=== PATIENT | female | born 1975 | race Caucasian/White ===

== ENCOUNTER → 2017-09-24 15:30 | Outpatient (CLI) | payer OTHER, SELFPAY ==
--- NOTE | 2017-09-24 15:33 | HPBI_ITS ---
MAMMOGRAPHY - BILATERAL SCREENING REASON FOR EXAM: Female, 42 years old. Routine annual screening examination. PERTINENT HISTORY: Non-contributory. TECHNIQUE: Digital bilateral breast stacia (3D mammographic acquisition) in the CC and MLO projections. 2-D mediolateral oblique (MLO) and craniocaudad (CC) views of both breasts were obtained. CAD: Full Field Digital Mammography with Computer Added Detection was performed. COMPARISON: Comparison is made with prior study dated September 01, 2016 and August 16, 2015. FINDINGS: Breast Composition: The breasts are heterogeneously dense, which may obscure small masses. There are no dominant masses or suspicious calcifications. No other significant abnormalities are identified. There has been no significant change since the prior study. HPBI/SCREENING MAMM (CAD), BILAT IMPRESSION: Stable bilateral screening mammogram. Yearly follow-up mammogram recommended. (A) ASSESSMENT CATEGORY: BIRADS Category 1: Negative. A letter regarding these results will be sent to the patient by the facility within 30 days. Approximately 10% of breast cancers are not detected by mammography. A normal mammogram should not delay biopsy of a clinically suspicious abnormality. [id number] Electronically Signed: Ian Wiggins MD at 8:22 EDT Tel [phone], Service support ,
== END ==
PROVIDERS: Family Provider Family Medicine; PCP Family Medicine; Visit Provider Obstetrics & Gynecology Gynecology
DX: Z12.31 Encounter for screening mammogram for malignant neoplasm of breast (principal)
CPT/HCPCS: 77063; 77067

== ENCOUNTER → 2018-11-04 | Outpatient (CLI) | payer OTHER, SELFPAY ==
[2018-01-23 09:46] VITALS: BMI 20.4
--- NOTE | 2018-11-04 08:50 | BI_ITS ---
MAMMOGRAPHY - BILATERAL DIAGNOSTIC REASON FOR EXAM: Female, 43 years old. Palpable lump. PERTINENT HISTORY: Left lump found by physician last week 8:00 position marked with marker. Not felt by patient. TECHNIQUE: Digital examination. Mediolateral oblique (MLO) and craniocaudad (CC) views of unilateral breast was obtained. CAD: COMPARISON: September 24, 2017 and November 04, 2018. FINDINGS: Breast Composition: There are no dominant masses or suspicious calcifications. No other significant abnormalities are identified. BI/DIAG MAMM W/CAD, BILAT IMPRESSION: Stable bilateral diagnostic mammogram. ASSESSMENT CATEGORY 0-assessment incomplete-additional imaging recommended.: Please refer to Subsequent dictation of the left breast lower inner quadrant sonographic evaluation. FOLLOW UP RECOMMENDATION: Ultrasound Recommended. (I) Approximately 10% of breast cancers are not detected by mammography. A normal mammogram should not delay biopsy of a clinically suspicious abnormality. Electronically Signed: Handy Newell MD at 14:31 EDT , Service support ,
--- NOTE | 2018-11-04 09:05 | US_ITS ---
STUDY: ULTRASOUND BREAST - LEFT REASON FOR EXAM: Female, 43 years old. Abnormal screening mammography. Left lump found by position last week at the lower inner quadrant approximately 8:00 position. TECHNIQUE: Axial and longitudinal images of the LEFT breast were performed with a high resolution ultrasound transducer. COMPARISON: None. FINDINGS: The area of clinical concern was sonographically evaluated utilizing various imaging planes augmented by color Doppler. There is no definite discrete cyst, nodule or mass. There is no fluid collection. There is a very vague ill-defined hypoechoic area within an area of breast tissue in the region of clinical concern. There is no posterior enhancement. There is no posterior shadowing. US/Breast Limited Unilateral IMPRESSION: No definite discrete cyst, nodule or mass. No fluid collection. Very, very, vague ill-defined hypoechoic area within the region of clinical concern. This finding may represent slightly atypical appearing intramammary lymph node. However, ill-defined mass cannot be completely excluded. Recommend further evaluation with breast MRI. ASSESSMENT CATEGORY: BIRADS Category 0: Incomplete. Need additional imaging evaluation. A letter regarding these results will be sent to the patient by the facility within 30 days. Recommendation: Highly recommend further evaluation with breast MRI. Electronically Signed: Handy Newell MD at 7:41 EDT , Service support ,
[2018-11-04 09:53] LABS: Cholesterol 182 mg/dL (200); Glucose 88 mg/dL (74-106); High Density Lipoprotein 78 mg/dL; Thyroid Stim Hormone (TSH) 2.92 uIU/mL (0.358-3.74); Triglycerides 34 mg/dL; Very Low Density Lipoprotein 7 mg/dL (5-40)
== END | disposition home or self-care (01) ==
LOC: LAB 08:14
PROVIDERS: Family Provider Family Medicine; PCP Family Medicine; Referring Provider Obstetrics & Gynecology Gynecology; Visit Provider Obstetrics & Gynecology Gynecology
DX: N63.0 Unspecified lump in unspecified breast (principal); Z13.1 Encounter for screening for diabetes mellitus; Z13.220 Encounter for screening for lipoid disorders
CPT/HCPCS: 36415; 76642; 77062; 77066; 80061; 82947; 84443; G0279

== ENCOUNTER → 2018-11-14 | Outpatient (CLI) | payer OTHER, SELFPAY ==
--- NOTE | 2018-11-14 12:46 | MRI_ITS ---
STUDY: BILATERAL BREAST MR WITHOUT AND WITH CONTRAST REASON FOR EXAM: Female, 43 years old. Palpable abnormality in the left breast on clinical breast exam. Equivocal ultrasound findings. Evaluate. TECHNIQUE: Multi-sequence multi-echo imaging of both breasts was performed with a dedicated breast coil. T1-weighted and T2-weighted images were performed before the administration of contrast. T1-weighted images were also performed after the administration of 10 IV Dotarem without complications. COMPARISON: Breast ultrasound dated 11/04/2018 and mammogram studies of 11/04/2017, 09/24/2017 and 09/01/2016 FINDINGS: RIGHT BREAST: The breast tissue is heterogeneously dense with minimal background enhancement. There are no abnormal enhancing masses or areas of non-mass enhancement in the right breast. LEFT BREAST: The breast tissue is heterogeneously dense with minimal background enhancement. There are no abnormal enhancing masses or areas of non-mass enhancement in the left breast. The palpable abnormality does not appear to be worrisome for malignancy based upon MRI criteria. The ill-defined region in the left breast seen on the ultrasound examination does not appear to be worrisome for malignancy based on MRI criteria. There are no enlarged or abnormal lymph nodes. There is no abnormality in the visualized regions of the chest or liver. MRI/Breast Bilateral W/O and W IMPRESSION: Unremarkable breast MR examination with contrast. The patient should continue to do monthly self breast exams. If the palpable area does increase in size, biopsy should be considered. Otherwise, the patient should return in 6 months for follow-up ultrasound of the palpable area to document stability. CATEGORY: BIRADS Category 3: Probably Benign - Short-Interval Follow-up Suggested. A letter regarding these results will be sent to the patient by the facility within 30 days. Electronically Signed: Silva Hector DO at 5:33 EDT Tel , Service support ,
== END | disposition home or self-care (01) ==
LOC: MRI 12:42
PROVIDERS: Family Provider Family Medicine; PCP Family Medicine; Referring Provider Obstetrics & Gynecology Gynecology; Visit Provider Obstetrics & Gynecology Gynecology
DX: R92.8 Other abnormal and inconclusive findings on diagnostic imaging of breast (principal)
CPT/HCPCS: 77049; A9575; A4216; C8908

== ENCOUNTER → 2019-05-27 | Outpatient (CLI) | payer OTHER, SELFPAY ==
--- NOTE | 2019-05-27 09:12 | US_ITS ---
STUDY: ULTRASOUND BREAST - LEFT REASON FOR EXAM: Female, 44 years old. Six-month follow-up of the palpable breast lump. TECHNIQUE: Axial and longitudinal images of the LEFT breast were performed with a high resolution ultrasound transducer. # OF IMAGES: 31 COMPARISON: Comparison is made with prior examination dated November 04, 2018. FINDINGS: LEFT Breast: Imaging of the 8:00 and 9:00 radians of the left breast was obtained. No significant abnormality is seen. US/Breast Limited Unilateral IMPRESSION: No significant abnormality is seen. ASSESSMENT CATEGORY: BIRADS Category 2: Benign. A letter regarding these results will be sent to the patient by the facility within 30 days. Electronically Signed: Ian Wiggins, at 10:26 EST , Service support ,
== END | disposition home or self-care (01) ==
LOC: OPUS 09:11
PROVIDERS: Family Provider Family Medicine; PCP Family Medicine; Referring Provider Obstetrics & Gynecology Gynecology; Visit Provider Obstetrics & Gynecology Gynecology
DX: N63.20 Unspecified lump in the left breast, unspecified quadrant (principal)
CPT/HCPCS: 76642

== ENCOUNTER 2020-03-31 12:54 | Outpatient (RCR) | payer OTHER, SELFPAY ==
[2019-10-03 16:09] VITALS: BMI 20.4
== END 2020-04-14 23:59 ==
LOC: EMPH 12:54
PROVIDERS: PCP Family Medicine; Visit Provider Family Medicine Geriatric Medicine
DX: Z11.59 Encounter for screening for other viral diseases (principal)
CPT/HCPCS: 87635; U0003

== ENCOUNTER → 2020-04-02 | Outpatient (CLI) | payer OTHER, SELFPAY ==
[2019-10-03 16:09] VITALS: BMI 20.4
--- NOTE | 2020-04-02 15:29 | CT_ITS ---
STUDY: CT MAXILLOFACIAL SINUSES REASON FOR EXAM: Female, 44 years old. Sinusitis, right sided pressure, unable to breathe thru, antibiotics x 3. SAIC navigation protocol. RADIATION DOSAGE (If Supplied By Facility): CTDIvol = ( 33.06 ) mGy, DLP = ( 842.11 ) mGycm TECHNIQUE: The patient was scanned in a multi detector CT scanner. High resolution axial imaging was performed without the administration of intravenous contrast material. Sagittal and coronal images were reconstructed. Individualized dose optimization techniques were used for this CT. COMPARISON: None. FINDINGS: FRONTAL SINUSES: Mild mucosal thickening of the right frontal sinus. ETHMOIDAL SINUSES: Opacification of the right ethmoid sinus. MAXILLARY SINUSES: Opacification of the right maxillary sinus. SPHENOIDAL SINUSES: Normal aeration, without mucosal inflammatory disease. The right maxillary infundibulum is compromised due to mucosal hypertrophy. Normal bilateral middle turbinates. There is hypertrophy of the bilateral inferior nasal turbinates. Normal midline nasal septum. Opacification of the right nasal cavity. The visualized osseous structures are normal. The visualized bilateral orbital contents are normal. CT/Sinus/Facial Bone IMPRESSION: Right maxillary, ethmoid and frontal sinusitis. Opacification of the right nasal cavity. Polyposis should be ruled out. Electronically Signed: Ian Wiggins, at 15:46 EDT , Service support ,
== END | disposition home or self-care (01) ==
LOC: CT 15:26
PROVIDERS: PCP Family Medicine; Referring Provider Family Medicine; Visit Provider Family Medicine
DX: J32.1 Chronic frontal sinusitis (principal)
CPT/HCPCS: 70486

== ENCOUNTER 2020-05-13 20:10 | Outpatient (RCR) | payer OTHER, SELFPAY ==
[2019-10-03 16:09] VITALS: BMI 20.4
== END 2020-05-15 23:59 ==
LOC: EMPH 20:10
PROVIDERS: PCP Family Medicine; Visit Provider Family Medicine Geriatric Medicine
DX: Z03.818 Encounter for observation for suspected exposure to other biological agents ruled out (principal)
CPT/HCPCS: 87426

== ENCOUNTER 2020-07-08 08:28 | Outpatient (RCR) | payer OTHER, SELFPAY ==
[2019-10-03 16:09] VITALS: BMI 20.4
== END 2020-07-15 23:59 ==
LOC: EMPH 08:28
PROVIDERS: PCP Family Medicine; Visit Provider Family Medicine Geriatric Medicine
DX: Z03.818 Encounter for observation for suspected exposure to other biological agents ruled out (principal)
CPT/HCPCS: 87426

== ENCOUNTER 2020-07-29 13:33 | Outpatient (RCR) | payer OTHER, SELFPAY ==
[2019-10-03 16:09] VITALS: BMI 20.4
== END 2020-08-15 23:59 ==
LOC: EMPH 13:33
PROVIDERS: PCP Family Medicine; Visit Provider Family Medicine Geriatric Medicine
DX: Z03.818 Encounter for observation for suspected exposure to other biological agents ruled out (principal)
CPT/HCPCS: 87426

== ENCOUNTER 2020-09-23 15:00 | Outpatient (RCR) | payer OTHER, SELFPAY ==
[2019-10-03 16:09] VITALS: BMI 20.4
== END 2020-10-13 23:59 ==
LOC: EMPH 15:00
PROVIDERS: Visit Provider Family Medicine Geriatric Medicine
DX: Z03.818 Encounter for observation for suspected exposure to other biological agents ruled out (principal)
CPT/HCPCS: 87426

== ENCOUNTER 2020-10-22 13:15 | Outpatient (RCR) | payer OTHER, SELFPAY ==
[2019-10-03 16:09] VITALS: BMI 20.4
== END 2020-11-12 23:59 ==
LOC: EMPH 13:15
PROVIDERS: Referring Provider Family Medicine Geriatric Medicine; Visit Provider Family Medicine Geriatric Medicine
DX: Z03.818 Encounter for observation for suspected exposure to other biological agents ruled out (principal)
CPT/HCPCS: 87426

== ENCOUNTER 2021-01-05 09:15 | Outpatient (RCR) | payer OTHER, SELFPAY ==
[2019-10-03 16:09] VITALS: BMI 20.4
== END 2021-01-12 23:59 ==
LOC: EMPH 09:15
PROVIDERS: Referring Provider Family Medicine Geriatric Medicine; Visit Provider Family Medicine Geriatric Medicine
DX: Z03.818 Encounter for observation for suspected exposure to other biological agents ruled out (principal)
CPT/HCPCS: 87426

== ENCOUNTER 2021-03-15 12:15 | Outpatient (RCR) | payer OTHER, SELFPAY ==
[2019-10-03 16:09] VITALS: BMI 20.4
== END 2021-03-15 23:59 ==
LOC: EMPH 12:15
PROVIDERS: Referring Provider Family Medicine Geriatric Medicine; Visit Provider Family Medicine Geriatric Medicine
DX: Z03.818 Encounter for observation for suspected exposure to other biological agents ruled out (principal)
CPT/HCPCS: 87426

== ENCOUNTER 2021-03-25 11:58 | Outpatient (RCR) | payer OTHER, SELFPAY ==
[2021-03-16 00:14] VITALS: BMI 20.4
== END 2021-04-14 23:59 ==
LOC: EMPH 11:58
PROVIDERS: Referring Provider Family Medicine Geriatric Medicine; Visit Provider Family Medicine Geriatric Medicine
DX: Z03.818 Encounter for observation for suspected exposure to other biological agents ruled out (principal)
CPT/HCPCS: 87426

== ENCOUNTER → 2021-05-18 16:09 | Outpatient (CLI) | payer OTHER, SELFPAY ==
--- NOTE | 2021-05-18 16:12 | BI_ITS ---
MAMMOGRAPHY - BILATERAL SCREENING REASON FOR EXAM: Female, 46 years old. Routine annual screening examination. PERTINENT HISTORY: Non-contributory. TECHNIQUE: Digital bilateral breast deidra (3D mammographic acquisition) in the CC and MLO projections. 2-D mediolateral oblique (MLO) and craniocaudad (CC) views of both breasts were obtained. CAD: Full Field Digital Mammography with Computer Added Detection was performed. COMPARISON: Comparison is made with prior mammogram dated 11/04/2018 and prior MRI of the breasts dated 11/14/2018. FINDINGS: Breast Composition: The breasts are heterogeneously dense, which may obscure small masses. There are no dominant masses or suspicious calcifications. No other significant abnormalities are identified. There has been no significant change since the prior study. BI/SCRN MAMM (CAD)W/DEIDRA BILAT IMPRESSION: Stable bilateral screening mammogram. Yearly follow-up mammogram recommended. (A) ASSESSMENT CATEGORY: BIRADS Category 1: Negative. A letter regarding these results will be sent to the patient by the facility within 30 days. Approximately 10% of breast cancers are not detected by mammography. A normal mammogram should not delay biopsy of a clinically suspicious abnormality. [id number] Electronically Signed: Ian Wiggins MD at 8:47 EDT , Service support ,
== END ==
PROVIDERS: Referring Provider Obstetrics & Gynecology Gynecology; Visit Provider Obstetrics & Gynecology Gynecology
DX: Z12.31 Encounter for screening mammogram for malignant neoplasm of breast (principal)
CPT/HCPCS: 77063; 77067

== ENCOUNTER 2021-07-14 15:41 | Outpatient (RCR) | payer OTHER, SELFPAY ==
[2021-04-15 00:10] VITALS: BMI 20.4
== END 2021-07-15 23:59 ==
LOC: EMPH 15:41
PROVIDERS: Referring Provider Family Medicine Geriatric Medicine; Visit Provider Family Medicine Geriatric Medicine
DX: Z03.818 Encounter for observation for suspected exposure to other biological agents ruled out (principal)
CPT/HCPCS: 87635; U0003; U0005

== ENCOUNTER → 2022-07-31 | Outpatient (CLI) | payer OTHER, SELFPAY ==
[2022-07-31 08:12] LABS: Cholesterol 192 mg/dL (200); Glucose 98 mg/dL (74-106); High Density Lipoprotein 81 mg/dL; Triglycerides 52 mg/dL; Very Low Density Lipoprotein 10 mg/dL (5-40)
[2022-07-31 09:10] LABS: Hepatitis C Antibody Non-Reactive (Nonreactive)
== END | disposition home or self-care (01) ==
LOC: LAB 07:31
PROVIDERS: PCP Family Medicine; Referring Provider Obstetrics & Gynecology Gynecology; Visit Provider Obstetrics & Gynecology Gynecology
DX: Z01.419 Encounter for gynecological examination (general) (routine) without abnormal findings (principal)
CPT/HCPCS: 36415; 80061; 82947; 84443; 86803

== ENCOUNTER → 2022-10-26 | Outpatient (CLI) | payer OTHER, SELFPAY ==
[2022-10-26 17:20] LABS: Thyroid Stim Hormone (TSH) 2.16 uIU/mL (0.358-3.74)
[2022-10-26 18:45] LABS: Hepatitis C Antibody Non-Reactive (Nonreactive)
== END | disposition home or self-care (01) ==
LOC: LAB 16:25
PROVIDERS: PCP Family Medicine; Visit Provider Obstetrics & Gynecology Gynecology
DX: Z01.419 Encounter for gynecological examination (general) (routine) without abnormal findings (principal); E03.8 Other specified hypothyroidism
CPT/HCPCS: 36415; 84443; 86803

== ENCOUNTER → 2023-04-13 | Outpatient (CLI) | payer OTHER, SELFPAY ==
--- NOTE | 2023-04-13 07:18 | BI_ITS ---
MAMMOGRAPHY - BILATERAL SCREENING REASON FOR EXAM: Female, 47 years old. Routine annual screening examination. PERTINENT HISTORY: Mother with breast cancer. TECHNIQUE: Digital bilateral breast deidra (3D mammographic acquisition) in the CC and MLO projections. 2-D mediolateral oblique (MLO) and craniocaudad (CC) views of both breasts were obtained. CAD: Full Field Digital Mammography with Computer Added Detection was performed. COMPARISON: Comparison is made with prior study May 18, 2021 and November 04, 2018. FINDINGS: Breast Composition: The breasts are heterogeneously dense, which may obscure small masses. There are no dominant masses or suspicious calcifications. No other significant abnormalities are identified. There has been no significant change since the prior study. BI/SCRN MAMM (CAD)W/DEIDRA BILAT IMPRESSION: Stable bilateral screening mammogram. Yearly follow-up mammogram recommended. (A) ASSESSMENT CATEGORY: BIRADS Category 1: Negative. A letter regarding these results will be sent to the patient by the facility within 30 days. Approximately 10% of breast cancers are not detected by mammography. A normal mammogram should not delay biopsy of a clinically suspicious abnormality. [id number] Electronically Signed: Ian Wiggins MD at 9:00 EDT ,
== END | disposition home or self-care (01) ==
LOC: OPBI 07:15
PROVIDERS: PCP Family Medicine; Referring Provider Obstetrics & Gynecology Gynecology; Visit Provider Obstetrics & Gynecology Gynecology
DX: Z12.31 Encounter for screening mammogram for malignant neoplasm of breast (principal); Z80.3 Family history of malignant neoplasm of breast
CPT/HCPCS: 77063; 77067

== ENCOUNTER → 2023-08-29 | Outpatient (CLI) | payer OTHER, SELFPAY ==
--- OUTSIDE RECORDS SUMMARY | 2023-08-29 07:36 | XMS RPT_ITS | CCD ---
Author Name Unknown Address [address] [place] [address] Organization [facility] Care Team Providers Care Skate Boarder Name Role Phone DR CHAS REIS DO Primary Care Physician JUAN MAKI, FARRAH Attending Unavailable SMILEY ROBERTSON, DR. DOHERTY Primary Care Francesco MARTINEZ MD, FARRAH Attending Edilberto REIS DO, DR. DOHERTY Primary Care Francesco MARTINEZ MD, FARRAH Attending Edilberto REIS DO, DR. DOHERTY Primary Care Francesco heart Allergies Allergy Classification Reported Allergen(s) Allergy Type Date of Onset Reaction(s) Facility (2 sources) Sulfonamides (Antibiotic); Translations: [sulfa drugs] Drug allergy [facility] Medications Current Medications Medication Drug Class(es) Dates Sig (Normalized) Sig (Original) ferrous sulfate 325 mg oral tablet (2 sources) Start: 07-26-2022 IRON (ferrous sulfate 325 mg) 65 mg oral tablet Dose : 325 mg = 1 tab(s), Oral, qDay, Take with food., # 60 tab(s), 3 Refill(s) Start Date: 07/26/22 Status: Ordered Multivitamin preparation (2 sources) Start: 04-04-2021 take 1 tablet by mouth once daily Multivitamin Dose = 1 tab(s), Oral, Daily, 0 Refill(s) Start Date: 04/04/21 Status: Ordered nitrofurantoin, macrocrystals 25 mg / nitrofurantoin, monohydrate 75 mg oral capsule (2 sources) Nitrofuran Antibacterial Start: 07-28-2022 End: 08-04-2022 Macrobid 100 mg oral capsule Dose : 100 mg = 1 cap(s), Oral, BID, Take with food, X 7 day(s), # 14 cap(s), 0 Refill(s), 08/04/22 10:54:00 EST, Pharmacy: [facility], 167, cm, 07/26/22 10:11:00 EST, Height, 64.1 Start Date: 07/28/22 Stop Date: 08/04/22 Status: Ordered Vitamin D3 (2 sources) Start: 07-26-2022 Vitamin D3 qDay, 0 Refill(s) Start Date: 07/26/22 Status: Ordered Problems Problem Classification Problem Date Documented Da te Episodic/Chronic Genitourinary symptoms and ill-defined conditions (2 sources) Dysuria; Translations: [Dysuria] Onset: 07-26-2022 Episodic Other screening for suspected conditions (not mental disorders or infectious disease) (4 sources) Encounter for other screening for malignant neoplasm of breast; Translations: [Encounter for screening for malignant neoplasm of cervix] Onset: 07-26-2022 Episodic Results Test Name Value Interpretation Reference Range Facil ity Encounters Encounter Date Encounter Type Care Provider Facility Start: 07-26-2022 End: 07-31-2022 ambulatory FARRAH MARTINEZ MD Facility:B Start: 07-26-2022 End: 07-31-2022 Encounter for gynecological examination (general) (routine) without abnormal findings FARRAH MARTINEZ MD Facility:[facility] Start: 07-26-2022 End: 07-30-2022 Outreach Lab FARRAH MARTINEZ MD [facility] Procedures Date Procedure Procedure Detail Performing Clinician section FARRAH Muhammad MD Payers Date Payer Category Payer Unknown [id number] 1975 Unknown [id number] 1975 Unknown [id number] 1975 Unknown [id number] Social History Date Type Detail Facility Start: 04-04-2021 Tobacco smoking status Never s moked tobacco (finding) [facility] Sex Assigned At Female [facility] Clinical Note 07-28-2022 Note Date & Type Note Facility 07-28-2022 Note . MICRO - Microbiology PROCEDURE: Urine Culture [*1] SOURCE: Urine BODY SITE: COLLECTED DATE/TIME: 07/26/2022 10:41 EST RECEIVED DATE/TIME: 07/26/2022 21:02 EST START DATE/TIME: 07/26/2022 21:02 EST FREE TEXT SOURCE: FINAL REPORTS Final Report [] Verified Date/Time/Personnel: 07/28/2022 08:23 EST >100,000 cfu/ml Escherichia coli PRELIMINARY REPORTS Preliminary Report [] Verified Date/Time/Personnel: 07/27/2022 13:39 EST >100,000 cfu/ml Escherichia coli HERMAN to follow SUSCEPTIBILITY RESULTS Escherichia coli Antibiotic HERMAN Dilut HERMAN Inter Ampicillin <=8 Susceptible Ampicillin/ <=4/2 Susceptible Sulbactam Aztreonam <=4 Susceptible Cefazolin <=2 Susceptible Ciprofloxacin <=0.25 Susceptible Ertapenem <=0.5 Susceptible Gentamicin <=2 Susceptible Imipenem <=1 Susceptible Levofloxacin <=0.5 Susceptible Meropenem <=1 Susceptible Minocycline <=4 Susceptible Nitrofurantoin <=32 Susceptible Trimethoprim/ <=0.5/9.5 Susceptible Sulfa Performing Locations *1: This test was performed at: [facility], [address] [place] [address], [facility] , [facility] Evaluation + Plan note 07-26-2022 Laboratory Note Date & Type Note Facility 07-26-2022 Evaluation + Plan note Future Scheduled TestsPathology Call Center Analyst Request 07/26/22Glucose Level 07/26/22Lipid Profile 07/26/22Hepatitis C Antibody IgG 07/26/22 [facility] Evaluation + Plan note 07-26-2022 Laboratory Note Date & Type Note Facility 07-26-2022 Evaluation + Plan note Diagnostic Tests PendingHPV Screen, DNA Probe 07/26/22 Future Scheduled TestsPathology Call Center Analyst Request 07/26/22Glucose Level 07/26/22Lipid Profile 07/26/22Hepatitis C Antibody IgG 07/26/22 [facility] Hospital course Narrative Note Date & Type Note Facility Hospital course Narrative No data available for this section [facility] Hospital Discharge instructions Note Date & Type Note Facility Hospital Discharge instructions No data available for this section [facility] Progress note Note Date & Type Note Facility Progress note No data available for this section [facility] Summary Purpose Family History No Family History Records Found Advance Directives No Advanced Directives Records Found Additional Source Comments Care Team (unrecognized sect ion and content) Care Team Personnel Name: CHAS REIS DO Member Role: Primary Care Physician Address: Address: [address] [place] [address] Care Team Related Persons Name: NEIL MCKEON Care Team Personnel Name: CHAS REIS DO Member Role: Primary Care Physician Address: Address: [address] [place] [address] Care Team Related Persons Name: NEIL MCKEON INFORMATION SOURCE (unrecogn ized section and content) FOR RECORDS PERTAINING TO PATIENTS WHO ARE OR HAVE BEEN ENROLLED IN A CHEMICAL DEPENDENCY/SUBSTANCEABUSE PROGRAM, SOME INFORMATION MAY BE OMITTED. This clinical summary was aggregated from multiple sources. Caution should be exercised in using it in the provision of clinical care. This summary normalizes information from multiple sources, and as a consequence, information in this document may materially change the coding, format and clinical context of patient data. In addition, data may be omitted in some cases. CLINICAL DECISIONS SHOULD BE BASED ON THE PRIMARY CLINICAL RECORDS. [facility]. provides no warranty or guarantee of the accuracy or completeness of information in this document.
[2023-08-29 08:41] LABS: Absolute Neutrophil Count 3.2 X10^3/uL (2.0-7.7); Basophil# 0.08 X10^3/uL; Basophil% 1.5 % (0-1); Eosinophil# 0.26 X10^3/uL; Eosinophils% 4.7 % (0-5); Hematocrit 37.7 % (37-47); Hemoglobin 12.3 g/dL (12.0-15.0); Lymphocyte % 27.3 % (19-41); Mean Corp Hgb Conc 32.6 g/dL (32-36); Mean Corpuscular Hgb 29.6 pg (27.0-32.0); Mean Corpuscular Volume 90.6 fL (81-99); Monocyte# 0.48 X10^3/uL; Monocyte% 8.7 % (0-10); NRBC Flagged by Analyzer 0 % (0-5); Neutrophil # 3.15 X10^3/uL (2.7-7.7); Neutrophil % 57.4 % (47-70); Platelet Count 254 K/mm3 (150-450); RBC Distribution Width CV 13.2 % (11.6-14.6); RBC Distribution Width SD 43.7 fl (35.1-43.9); Red Blood Count 4.16 M/mm3 (4.2-5.4); White Blood Count 5.5 K/mm3 (4.4-11.0)
[2023-08-29 10:06] LABS: ALB/GLOB Ratio 1.2 RATIO (0.9-2.4); AST(SGOT) 17 U/L (15-37); Alanine Aminotransfer ALT/SGPT 14 U/L (13-56); Albumin, Serum 3.8 g/dL (3.2-5.0); Alkaline Phosphatase 59 U/L (45-117); Anion Gap 7 (5-15); BUN 14 mg/dL (7-18); BUN/Creat Ratio 15.2 RATIO (10-20); Calcium,Total 9.2 mg/dL (8.5-10.1); Chloride 109 mmol/L (98-107); Cholesterol 213 mg/dL (200); Creatinine, Serum 0.92 mg/dL (0.55-1.02); EST Glomerular Filtration Rate 69 mL/min (>60); Est Glom Filt Rate - Afr Amer 83 mL/min (>60); Globulin 3.2 g/dL (2.2-4.2); Glucose 96 mg/dL (74-106); High Density Lipoprotein 75 mg/dL; Sodium Level 143 mmol/L (136-145); T4 Free Direct 0.84 ng/dL (0.76-1.46); Thyroid Stim Hormone (TSH) 3.09 uIU/mL (0.358-3.74); Triglycerides 77 mg/dL; Very Low Density Lipoprotein 15 mg/dL (5-40)
== END | disposition home or self-care (01) ==
LOC: LAB 07:34
PROVIDERS: PCP Family Medicine; Visit Provider Family Medicine
DX: Z00.00 Encounter for general adult medical examination without abnormal findings (principal); E03.9 Hypothyroidism, unspecified; Z80.3 Family history of malignant neoplasm of breast
CPT/HCPCS: 36415; 80053; 80061; 84439; 84443; 85025

== ENCOUNTER 2024-01-07 11:01 | Outpatient (RCR) | payer OTHER, SELFPAY | END 2024-01-13 23:59 | LOC: EMPH 11:01 | PROVIDERS: PCP Family Medicine; Visit Provider Family Medicine Geriatric Medicine | DX: Z03.818 Encounter for observation for suspected exposure to other biological agents ruled out (principal) | CPT/HCPCS: 87811 ==

== ENCOUNTER → 2024-01-08 | Outpatient (CLI) | payer OTHER, SELFPAY ==
[2024-01-08 15:42] LABS: T4 Free Direct 0.86 ng/dL (0.76-1.46); Thyroid Stim Hormone (TSH) 3.71 uIU/mL (0.358-3.74)
[2024-01-14 18:07] LABS: Age Gdln ACOG Testing 30-65 (.); HPV APTIMA, High Risk Negative (Negative)
[2024-01-14 18:47] LABS: HPV Reflexed? YES, CHARGE PATIENT
== END | disposition home or self-care (01) ==
LOC: BFHLAB 11:16
PROVIDERS: PCP Family Medicine; Visit Provider Family Medicine
DX: Z12.4 Encounter for screening for malignant neoplasm of cervix (principal); E03.9 Hypothyroidism, unspecified
CPT/HCPCS: 36415; 84439; 84443; 87624; 88175; G0145

== ENCOUNTER → 2024-04-17 | Outpatient (CLI) | payer OTHER, SELFPAY ==
--- NOTE | 2024-04-17 07:24 | BI_ITS ---
MAMMOGRAPHY - BILATERAL SCREENING REASON FOR EXAM: Female, 48 years old. Routine annual screening examination. PERTINENT HISTORY: Mother with breast cancer. TECHNIQUE: Digital bilateral breast deidra (3D mammographic acquisition) in the CC and MLO projections. 2-D mediolateral oblique (MLO) and craniocaudad (CC) views of both breasts were obtained. CAD: Full Field Digital Mammography with Computer Added Detection was performed. COMPARISON: Comparison is made with prior study April 13, 2023 and May 18, 2021. FINDINGS: Breast Composition: The breasts are heterogeneously dense, which may obscure small masses. There are no dominant masses or suspicious calcifications. No other significant abnormalities are identified. There has been no significant change since the prior study. BI/SCRN MAMM (CAD)W/DEIDRA BILAT IMPRESSION: Stable bilateral screening mammogram. Yearly follow-up mammogram recommended. (A) ASSESSMENT CATEGORY: BIRADS Category 1: Negative. A letter regarding these results will be sent to the patient by the facility within 30 days. Approximately 10% of breast cancers are not detected by mammography. A normal mammogram should not delay biopsy of a clinically suspicious abnormality. [id number] Electronically Signed: Ian Wiggins MD at 9:43 EDT ,
== END | disposition home or self-care (01) ==
LOC: OPBI 07:23
PROVIDERS: PCP Family Medicine; Referring Provider Family Medicine; Visit Provider Family Medicine
DX: Z12.31 Encounter for screening mammogram for malignant neoplasm of breast (principal)
CPT/HCPCS: 77063; 77067

== ENCOUNTER 2024-10-27 12:09 | Day surgery (SDC) | payer OTHER, SELFPAY ==
[2024-10-27] VITALS (8 sets, daily range): BP systolic 106–128; BP diastolic 71–79; PULSE 78–86; RESP 16; TEMP 36.4–37.6; O2SAT 95–100; BMI 22.7
--- NOTE | 2024-10-27 12:55 | PCM.PRE.AN2 ---
ASA Classification* ASA Classification ASA Classification: 2 Assessment & Plan Anesthesia* Anesthesia Assessment Anesthesia Assessment: Discussed sedation and/or anesthesia options, risks, benefits, and alternatives with patient/parents/legal guardian/POA. Questions invited. The patient/parents/legal guardian/POA seems to understand and agrees to proceed with anesthesia plan. Reviewed the physical assessment, medical history, allergy history and patient home medications list prior to surgery/procedure/anesthetic and documented any changes. Performed airway and anesthesia risk assessments. Anesthesia Type Anesthesia Type: MAC Anesthesia Focused Assessment* Temperature: 99.6 F Pulse Rate: 86 Blood Pressure: 125/79 Respiratory Rate: 16 Pulse Ox: 100 Airway Assessment Mouth opens: >3 cm Mallampati Score: II Focused Labs Anesthesia Preop lab: CBC WBC 5.5 K/mm3 (4.4-11.0) 08/29/23 07:37 08/29/23 RBC 4.16 M/mm3 (4.2-5.4) L 08/29/23 07:37 08/29/23 Hgb 12.3 g/dL (12.0-15.0) 08/29/23 07:37 08/29/23 Hct 37.7 % (37-47) 08/29/23 07:37 08/29/23 Plt Count 254 K/mm3 (150-450) 08/29/23 07:37 08/29/23 CHEMISTRY Potassium 4.0 mmol/L (3.5-5.1) 08/29/23 07:37 08/29/23 Sodium 143 mmol/L (136-145) 08/29/23 07:37 08/29/23 BUN 14 mg/dL (7-18) 08/29/23 07:37 08/29/23 Creatinine 0.92 mg/dL (0.55-1.02) 08/29/23 07:37 08/29/23 Glucose 96 mg/dL (74-106) 08/29/23 07:37 08/29/23 TSH 3.71 uIU/mL (0.358-3.74) 01/08/24 11:16 01/08/24 COAG Pre-Assessment Diagnosis/Proposed Procedure Planned Operative Procedure(s): CSCOPE Anesthesia History 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 When Was Last Pacemaker Check QUESTION #4 FULL TEXT: You/Your Family Experience fever (hyperthermia) with Anesthesia Last Oral Intake Last Oral intake: Last Oral Intake NPO since 10:30 10/27/24 12:36 Meds taken in AM with sips of water? Meds patient instructed to take am of surgery PONV PONV - operating system programmer: PONV - operating system programmer Female Yes 10/21/24 12:29 HX of Motion Sickness Yes 10/21/24 12:29 HX of N/V After Surgery No 10/21/24 12:29 Non-Smoker Yes 10/21/24 12:29 Duration of Surgery greater No 10/21/24 12:29 than 60 minutes Number of Risk Factors 3 10/21/24 12:29 PONV Score Moderate Risk 10/21/24 12:29 Height & Weight Height & Weight: Anesthesia: Height & Weight Height 5 ft 6 in 10/27/24 12:36 Weight: 63.9 kg 10/27/24 12:36 Body Mass Index (BMI) 22.7 10/27/24 12:36 Respiratory Assessment Respiratory Assessment - operating system programmer: Respiratory Tract Infection Hx - operating system programmer Hx Respiratory Tract Infection No 10/21/24 12:29 STOP Sleep Apnea STOP Sleep Apnea - operating system programmer: STOP Sleep Apnea - operating system programmer Hx Hypertension No 10/21/24 12:29 Hx Sleep Apnea No 10/21/24 12:29 CPAP BIPAP Do you snore loudly (louder No 10/21/24 12:29 than talking or can be heard Do you often feel tired/ No 10/21/24 12:29 fatigued/ sleepy during daytime? Has anyone observed you stop No 10/21/24 12:29 breathing during sleep? STOP Results Negative 10/21/24 12:29 QUESTION #5 FULL TEXT : Do you snore loudly (louder than talking or can be heard through closed doors)? 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 Specify any problems Hx of Preganancy in last 3 N/A 10/21/24 12:29 Months Nurse Filling Out Transfusion NBUCHER 10/21/24 12:29 & Questions: Date: 10/21/24 10/21/24 12:29 Time: 12:29 10/21/24 12:29 Patient unable to answer at this time (ie. confused, unrespo /Reproduction History /Reproductive History - operating system programmer: /Reproductive Hx- operating system programmer Hx Now No 10/21/24 12:29 Gestational Age (in weeks): EDC: Hx Hx Para Hx Section SAB No 10/21/24 12:29 [facility] Medical History History of steroid therapy Thyroid disease Non-smoker Hypothyroidism Home Medications ?Medication ?Instructions ?Recorded ?Last Taken ?Type multivitamin 1 tab PO QDAY 01/23/18 Unknown History levothyroxine 50 mcg tablet 50 mcg PO DAILY 10/21/24 Unknown History (Synthroid) Allergy/AdvReac Type Severity Reaction Status Date / Time Sulfa (Sulfonamide Allergy Mild Hives Verified 10/27/24 12:32 Antibiotics) Family History Other Hypertension Surgical History History of 3 sections Social History household members: spouse current occupational status: employed Smoking Status: Never smoker substance use type: does not use Review of Systems (Anesthesia) ROS Narrative System reviewed and no additional complaints, except as documented.
--- NOTE | 2024-10-27 13:07 | PCM.HP.STD ---
[facility] - General General Date of Admission: 10/27/24 Date of Service: 10/27/24 Chief Complaint: Screening colonoscopy HPI Narrative LIANE MCKEON, is a 49 F who presents today for her first colonoscopy. She is never done colonoscopy the past. She does not have any family history of colon cancer. She does not have any change in bowel habits. Overall she is in very good health. [facility] Medical History History of steroid therapy Thyroid disease Non-smoker Hypothyroidism Home Medications ?Medication ?Instructions ?Recorded ?Last Taken ?Type multivitamin 1 tab PO QDAY 01/23/18 Unknown History levothyroxine 50 mcg tablet 50 mcg PO DAILY 10/21/24 Unknown History (Synthroid) Allergy/AdvReac Type Severity Reaction Status Date / Time Sulfa (Sulfonamide Allergy Mild Hives Verified 10/27/24 12:32 Antibiotics) Family History Other Hypertension Surgical History History of 3 sections Social History household members: spouse current occupational status: employed Smoking Status: Never smoker substance use type: does not use ROS Constitutional Constitutional: Denies fatigue, fever(s), poor appetite, weight gain or weight loss Gastrointestinal Gastrointestinal: Denies belching, bloating, change in bowel habits, change in stool character, chewing difficulty, coffee ground emesis, constipation, cramping, diarrhea, dyspepsia, dysphagia, early satiety, excessive flatus, fecal incontinence, heartburn, hematemesis, hematochezia, hemorrhoids, loose stools, melena, nausea, odynophagia, rectal bleeding, tenesmus, vomiting or weight changes Vital Signs Vital Signs Vital Signs: 10/27/24 12:36 10/27/24 12:36 10/27/24 12:56 Temperature 99.6 F H 99.6 F H Temperature Source Temporal Pulse Rate 86 86 Respiratory Rate 16 16 Respiratory Pattern Normal Blood Pressure 125/79 H 125/79 H Blood Pressure Mean 94 Blood Pressure Source Monitor Blood Pressure Position Semi-Fowlers Blood Pressure Location Left Arm Pulse Ox 100 100 Oxygen Delivery Method Room Air Weight Weight: 140 lb 14.006 oz Body Mass Index (BMI) 22.7 Physical Exam Const alert, oriented x3, no apparent distress and healthy appearing General Appearance: cooperative GI normal to inspection, nondistended, normoactive bowel sounds, soft to palpation, non-tender and non-distended Percussion: normal to percussion Rectal Exam: deferred Assessment & Plan Assessment/Plan (1) Encounter for screening for malignant neoplasm of colon: PLAN: She was explained alternatives, risk and benefits include not withstanding bleeding, infection, sepsis, perforation, need for more injection and . She will have an ASA of 3.
--- NOTE | 2024-10-27 14:04 | OP.COLON_ITS ---
Patient Name: Vee Delarosa Procedure Date: 10/27/2024 1:41 PM Date of : 1975 Age: 49 Procedure: Colonoscopy Indications: Screening for colorectal malignant neoplasm Providers: Jaleel Head DO Referring MD: Radha Linn Medicines: Monitored Anesthesia Care Patient Profile: This is a 49 year old female. Refer to note in patient chart for documentation of history and physical. Last Colonoscopy: none. The patient's first colonoscopy is today. Complications: No immediate complications. Procedure: Pre-Anesthesia Assessment: - Prior to the procedure, a History and Physical was performed, and patient medications and allergies were reviewed. The patient is competent. The risks and benefits of the procedure and the sedation options and risks were discussed with the patient. All questions were answered and informed consent was obtained. Patient identification and proposed procedure were verified by the physician in the pre-procedure area. Mental Status Examination: alert and oriented. Airway Examination: normal oropharyngeal airway and neck mobility. Respiratory Examination: clear to auscultation. CV Examination: normal. Prophylactic Antibiotics: The patient does not require prophylactic antibiotics. Prior Anticoagulants: The patient has taken no anticoagulant or antiplatelet agents except for NSAID medication. ASA Grade Assessment: II - A patient with mild systemic disease. After reviewing the risks and benefits, the patient was deemed in satisfactory condition to undergo the procedure. The anesthesia plan was to use monitored anesthesia care (MAC). Immediately prior to administration of medications, the patient was re-assessed for adequacy to receive sedatives. The heart rate, respiratory rate, oxygen saturations, blood pressure, adequacy of pulmonary ventilation, and response to care were monitored throughout the procedure. The physical status of the patient was re-assessed after the procedure. After I obtained informed consent, the scope was passed under direct vision. Throughout the procedure, the patient's blood pressure, pulse, and oxygen saturations were monitored continuously. The colonoscope was introduced through the anus and advanced to the cecum, identified by appendiceal orifice and ileocecal valve. The colonoscopy was performed without difficulty. The patient tolerated the procedure well. The quality of the bowel preparation was adequate. The ileocecal valve, appendiceal orifice, and rectum were photographed. Scope In: 1:49:27 PM Scope Withdrawal Time 0 hours 5 minutes 58 seconds Scope Out: 2:02:25 PM Total Procedure Duration Time 0 hours 12 minutes 58 seconds Findings: The perianal and digital rectal examinations were normal. The entire examined colon appeared normal on direct and retroflexion views. Impression: - The entire examined colon is normal on direct and retroflexion views. - No specimens collected. Recommendation: - Discharge patient to home. - Resume previous diet. - Continue present medications. - Repeat colonoscopy in 10 years for screening purposes. Procedure Code(s): --- Professional --- G0121, Colorectal cancer screening; colonoscopy on individual not meeting criteria for high risk CPT copyright 2021 [employer]. All rights reserved. The codes documented in this report are preliminary and upon community development director review may be revised to meet current compliance requirements. Jaleel Head DO 10/27/2024 2:04:12 PM This report has been signed electronically. Number of Addenda: 0 Note Initiated On: 10/27/2024 1:41 PM
--- NOTE | 2024-10-27 14:04 | OP.CCLET_ITS ---
10/27/2024 Radha Linn [place] [id number] [place] [address] Re : Colonoscopy procedure for Vee Delarosa Dear Dr. Linn This procedure was performed on Sunday, October 27, 2024. My impressions and recommendations are as follows: Impressions : - The entire examined colon is normal on direct and retroflexion views. - No specimens collected. Recommendations : - Discharge patient to home. - Resume previous diet. - Continue present medications. - Repeat colonoscopy in 10 years for screening purposes. My findings are described in the full procedure note, which is enclosed. If I can be of further assistance, please feel free to contact me at . Sincerely, Jaleel Friend, 10/27/2024 2:04:12 PM This report has been signed electronically.
--- NOTE | 2024-10-27 14:11 | PCM.POST.ANE ---
Anesthesia: Postop Eval I Current Vital Signs Temperature: 97.6 F Pulse Rate: 85 Blood Pressure: 106/73 Respiratory Rate: 16 Pulse Ox: 98 Oxygen Delivery Method: Room Air Assessment Airway patent: Yes Spontaneous unlabored respirations: Yes Mental status: Asleep nausea: No Vomiting: No Anesthesia Complication: No Fluid Hydration Crystalloid volume administer (ml): 40 Total IV fluid infused: 40 Progress Note Anesthesia document: Postop Eval 1 completed: Yes
--- NOTE | 2024-10-27 14:23 | PCM.POSTANE2 ---
Anesthesia Postop Eval I Sum Postop Eval Completion status Anesthesia document: Postop Eval 1 completed: Yes Anesthesia Postop Eval I Summary Anesthesia Postop Eval I Summary: Anesthesia Postop Eval I: Assessment Summary Airway patent Yes 10/27/24 14:13 [email or web address] Spontaneous unlabored Yes 10/27/24 14:13 [email or web address] respirations Mental status Asleep 10/27/24 14:13 [email or web address] nausea No 10/27/24 14:13 [email or web address] Vomiting No 10/27/24 14:13 [email or web address] Anesthesia Postop Eval I: Fluid Summary Crystalloid volume administer 40 10/27/24 14:13 [email or web address] (ml) Colloids volume administered ( ml) Blood Product volume administered (ml) Total IV fluid infused 40 10/27/24 14:13 [email or web address] Anesthesia Postop Eval I: Summary Notes Anesthesia Complication No 10/27/24 14:13 [email or web address] Anesthesia Complication Comment: Post-operative progress note Anesthesia: Postop Eval II Evaluation Mental status: Awake Pain Level: 0 nausea: No Vomiting: No
== END 2024-10-27 14:43 | disposition home or self-care (01) ==
LOC: EN 12:10 → AC 12:11
PROVIDERS: PCP Family Medicine; Referring Provider Family Medicine; Visit Provider Internal Medicine Gastroenterology
PROC: 0DJD8ZZ Inspection of Lower Intestinal Tract, Via Natural or Artificial Opening Endoscopic (ICD-10-PCS; CPT 45378; principal; 2024-10-27 13:10)
DX: Z12.11 Encounter for screening for malignant neoplasm of colon (principal); E03.9 Hypothyroidism, unspecified; Z87.890 Personal history of sex reassignment
CPT/HCPCS: 45378; A4216; J2405

== ENCOUNTER → 2024-12-29 | Outpatient (CLI) | payer OTHER, SELFPAY ==
[2024-12-29 07:55] LABS: Absolute Lymphocyte Count 1.76 X10^3/uL (0.83-4.51); Absolute Neutrophil Count 3.2 X10^3/uL (2.0-7.7); Basophil# 0.08 X10^3/uL; Basophil% 1.3 % (0-1); Eosinophil# 0.37 X10^3/uL; Eosinophils% 6.2 % (0-5); Hematocrit 35.9 % (37-47); Hemoglobin 11.8 g/dL (12.0-15.0); Lymphocyte # 1.76 X10^3/ul (0.83-4.51); Lymphocyte % 29.4 % (19-41); Mean Corp Hgb Conc 32.9 g/dL (32-36); Mean Corpuscular Hgb 29.1 pg (27.0-32.0); Mean Corpuscular Volume 88.6 fL (81-99); Mean Platelet Vol. 10.8 fl (6.2-12.0); Monocyte# 0.55 X10^3/uL; Monocyte% 9.2 % (0-10); NRBC Flagged by Analyzer 0 % (0-5); Neutrophil # 3.21 X10^3/uL (2.7-7.7); Neutrophil % 53.7 % (47-70); Platelet Count 263 K/mm3 (150-450); RBC Distribution Width CV 13.2 % (11.6-14.6); RBC Distribution Width SD 43.4 fl (35.1-43.9); Red Blood Count 4.05 M/mm3 (4.2-5.4)
[2024-12-29 18:15] LABS: ALB/GLOB Ratio 1.7 RATIO (0.9-2.4); AST(SGOT) 17 U/L (<=31); Alanine Aminotransfer ALT/SGPT 8 U/L (<=34); Albumin, Serum 4.2 g/dL (3.5-5.0); Alkaline Phosphatase 63 U/L (35-104); Anion Gap 9 (5-15); BUN 16 mg/dL (4-19); BUN/Creat Ratio 15.9 RATIO (10-20); Carbon Dioxide 23.7 mmol/L (21.0-32.0); Chloride 106 mmol/L (98-108); EST Glomerular Filtration Rate 69 (>60); Globulin 2.4 g/dL (2.2-4.2); Glucose 101 mg/dL (70-99); Potassium 4.4 mmol/L (3.3-5.1); Protein, Total 6.6 g/dL (5.9-8.4); Sodium Level 139 mmol/L (133-145)
[2024-12-30 15:53] LABS: Cholesterol 185 mg/dL (<=200); High Density Lipoprotein 63 mg/dL; Low Density Lipoprotein Calc. 107 mg/dL; Total Bilirubin 0.23 mg/dL (0.00-1.30); Triglycerides 78 mg/dL; Very Low Density Lipoprotein 16 mg/dL (5-40); cholesterol:hdl ratio screen 2.95
== END | disposition home or self-care (01) ==
LOC: LAB 07:31
PROVIDERS: PCP Family Medicine; Referring Provider Family Medicine; Visit Provider Family Medicine
DX: Z00.00 Encounter for general adult medical examination without abnormal findings (principal); E03.9 Hypothyroidism, unspecified; Z80.3 Family history of malignant neoplasm of breast
CPT/HCPCS: 36415; 80053; 80061; 84439; 84443; 85025

== ENCOUNTER → 2025-04-24 | Outpatient (CLI) | payer OTHER, SELFPAY | END | disposition home or self-care (01) | LOC: OPBI 07:27 | PROVIDERS: PCP Family Medicine; Referring Provider Family Medicine; Visit Provider Family Medicine | DX: Z12.31 Encounter for screening mammogram for malignant neoplasm of breast (principal) | CPT/HCPCS: 77063; 77067 ==